=== PATIENT | male | born 1935 | race Caucasian/White ===

== ENCOUNTER → 2016-09-24 | Outpatient (CLI) | payer MEDICARE ==
[2016-09-24 16:29] LABS: CHCM 33.8; HCT 46.3 % (39.0-53.0); HDW 2.39; HGB 15.4 gm/dL (13.0-17.5); MCH 32.5 pg (25.0-35.0); MCHC 33.2 g/dL (31.0-37.0); Mean Platelet Volume 8.5; RBC 4.72 m/uL (4.30-5.90); RDW 12.5 % (11.5-15.5); WBC 7.4 k/uL (3.8-10.6)
[2016-09-24 16:47] LABS: Anion Gap 10 mmol/L; Blood Urea Nitrogen 12 mg/dL (9-20); Carbon Dioxide 27 mmol/L (22-30); Chloride 102 mmol/L (98-107); Non-African American GFR(MDRD) >60 (>60 ml/min/1.73 sqM); Potassium 4.5 mmol/L (3.5-5.1); Sodium 139 mmol/L (137-145)
== END | disposition home or self-care (01) ==
LOC: LABPAT 16:10
PROVIDERS: ATTEND Internal Medicine Cardiovascular Disease
DX: Z01.812 Encounter for preprocedural laboratory examination (principal); I49.5 Sick sinus syndrome
CPT/HCPCS: 80051; 82565; 84520; 85027

== ENCOUNTER 2016-09-27 05:48 | Day surgery (SDC) | payer MEDICARE ==
[2016-09-26 09:20] VITALS: BMI 28.5
[2016-09-27] MEDS ORDERED: CLINDAMYCIN 900 MG in DEXTROSE 5% IN WATER 50 ML IVPB ONE ×2 (05:56)
[2016-09-27] MEDS ORDERED: CLINDAMYCIN 600 MG in SODIUM CHLORIDE 0.9% IRRIGATIO 250 ML IRRIGATION ONE (05:56)
[2016-09-27] MEDS ORDERED: SODIUM CHLORIDE 0.9% 1,000 ML IV SCH (05:56)
[2016-09-27] MEDS ORDERED: fentaNYL (PF) 50 MCG/ML 2 ML AMP ONE (07:25)
[2016-09-27] MEDS ORDERED: MIDAZOLAM 2 MG/2 ML VIAL ONE (07:25)
[2016-09-27] MEDS ORDERED: fentaNYL (PF) 50 MCG/ML 2 ML AMP IV ONE (07:29)
[2016-09-27] MEDS ORDERED: MIDAZOLAM 2 MG/2 ML VIAL IV ONE (07:30)
[2016-09-27] MEDS ORDERED: LIDOCAINE 1% INJ 10MG/ML (20 ML MDV) SQ ONE (07:35)
[2016-09-27] MEDS ORDERED: HYDROcodone/APAP 5-325MG 1 EACH TAB PO PRN (08:28)
[2016-09-27] MEDS ORDERED: ACETAMINOPHEN TAB 325 MG TAB PO PRN (08:28)
--- NOTE | 2016-09-27 08:42 | P.PCN ---
Date of Procedure: 09/27/16 Preoperative Diagnosis: The fibrillation and sick sinus syndrome with near syncope Postoperative Diagnosis: The same Procedure(s) Performed: Axillary venography, dual-chamber permanent pacemaker implantation. Description of Procedure: HISTORY: This is a 80-year-old gentleman with history of access in atrial fibrillation and sick sinus syndrome with pauses up to 3 seconds and also symptoms of near syncope. Patient is advised to have permanent pacemaker implantation by Dr. Garcia. CONSENT:I have discussed the risks, benefits and alternative therapies for the above-mentioned procedure and for both sedation/analgesia as well as necessary blood product administration, if indicated, as they pertain to this patient. The patient has indicated understanding and acceptance of the risks and procedures discussed. CONSCIOUS SEDATION: Patient was given 1.5 milligrams of Versed and 50 g of fentanyl for sedation. The duration of sedation his 1 hour. PROCEDURE: Patient was brought to the lab in a fasting state. Patient was prepped and draped in the usual fashion. Patient was given IV sedation with fentanyl and Versed. The skin below the left clavicle was infiltrated with lidocaine. An incision was made parallel to deltopectoral groove was deepened until the pectoral fascia was exposed. A pocket was created by blunt dissection and cautery. Axillary venography was performed to delineate the course of the axillary vein. 2 sticks were performed into extrathoracic portion of the axillary vein and 2 sheaths were advanced over the guidewires and left in subclavian vein. LEADS: ATRIAL: This is manufactured by [employer]. Model number is 7741 and the serial number is [id number] VENTRICULAR: This is manufactured by [employer]. Model number is 7742 and the serial number is [id number]. THE DEVICE: This is manufactured by [employer]. Model number is L311 and serial number is [id number]. This is MRI capable device The ventricular lead is maneuvered l with help of a straight and curved stylets into the left ventricle apical region. Satisfactory position was obtained and threshold measurements were made. The atrial lead was then maneuvered into the right atrial appendage. And thresholds were obtained. THRESHOLDS: ATRIUM: The minimal patient threshold was 0.8 at pulse width of 0.5 ms with impedance of 541 ohms. P-wave: 5.6 mV VENTRICLE : The minimum patient threshold was 0.4 V at pulse width of 0.8 ms with impedance of 937 ohms. R-wave: 23 mV The leads and pulse generator remained in the pocket after it was washed with antibiotics. Pocket was closed in the usual fashion. The fascia was closed with 2-0 Prolene ,the subcutaneous tissue was closed with 3-0 Prolene and the skin was closed with 4-0 Prolene. PROGRAMMING: MODE: DDDR RATE: 60 to 1:30 OUTPUT: Atrium : 3.5 at 5 ms ventricle: 3.5 V at 0.5 ms FINAL IMPRESSION: #1 axillary venography #2 successful implantation of dual- chamber pacemaker COMPLICATIONS: None PLAN: Patient will be monitored on the telemetry unit. Prophylactic antibacterial be continued. Chest x-ray in the morning. If stable patient will be discharged home tomorrow. We'll resume anticoagulation from tomorrow evening.
[2016-09-27] MEDS ORDERED: ceFAZolin 2 GM in SODIUM CHLORIDE 0.9% 100 ML IVPB SCH (09:00)
[2016-09-27] MEDS: ATENOLOL 25 MG TAB PO SCH (11:12)
[2016-09-27] MEDS: LOSARTAN-HCTZ 50-12.5 MG 1 EACH TAB PO SCH (11:12)
[2016-09-27] MEDS: CLINDAMYCIN 600 MG in DEXTROSE 5% IN WATER 50 ML IVPB SCH ×6 (11:21→23:09)
[2016-09-27] MEDS ORDERED: ATORVASTATIN 10 MG TAB PO SCH (21:00)
[2016-09-27] MEDS ORDERED: MULTIVITAMINS, THERA 1 EACH TAB PO SCH (21:00)
[2016-09-27] MEDS ORDERED: CALCIUM CARBONATE 500 MG CHEWABLE PO SCH (21:00)
[2016-09-27] MEDS ORDERED: TAMSULOSIN 0.4 MG CAP.ER.24H PO SCH (21:00)
[2016-09-28] MEDS: CLINDAMYCIN 600 MG in DEXTROSE 5% IN WATER 50 ML IVPB SCH ×2 (05:58)
[2016-09-28 06:09] VITALS: RESP 16
--- NOTE | 2016-09-28 07:44 | XR ---
EXAMINATION TYPE: XR chest 2V DATE OF EXAM: 09/28/2016 6:23 AM COMPARISON: Prior chest x-ray 29 January 2012 HISTORY: Lead placement check TECHNIQUE: Frontal and lateral views of the chest are obtained. FINDINGS: Generator has been placed in the left pectoral region, there are leads in the right atrium and ventricle. No evident pneumothorax or pleural effusion. No other interval change. IMPRESSION: No evident complication status post pacemaker placement.
[2016-09-28 08:01] VITALS: BP 125/69; PULSE 76; TEMP 98.6
[2016-09-28] MEDS: LOSARTAN-HCTZ 50-12.5 MG 1 EACH TAB PO SCH (08:04)
[2016-09-28] MEDS: ATENOLOL 25 MG TAB PO SCH (08:05)
--- NOTE | 2016-09-28 09:16 | P.DS ---
Providers Attending physician: Sonya Pathak Primary care physician: Quinn Cerrato [facility] Course: Patient is doing well from a cardiac standpoint. No chest discomfort or shortness of breath. No swelling over the pacemaker site On examination his blood pressure is 125/69 mmHg heart rate 7 the 70s afebrile 98.6F Heart sounds are normal Breath sounds are normal no rhonchi no crackles Abdomen is soft nontender Extremities are warm no edema Impression Symptomatic bradycardia status post pacemaker implantation History of atrial flutter Plan Discharge home after completion of IV antibiotics, pacemaker interrogation Chest x-ray within normal limits Follow-up in the pacemaker clinic in 5 days All instructions given Follow-up with Dr. Dr. Garcia is scheduled Patient Condition at Discharge: Stable Plan - Discharge Summary Discharge Medication List Lovastatin [Mevacor] 20 mg PO HS 01/11/14 [History] Rivaroxaban [Xarelto] 20 mg PO DAILY 01/11/14 [History] Tamsulosin [Flomax] 0.4 mg PO HS 01/11/14 [History] Atenolol [Tenormin] 25 mg PO DAILY 09/26/16 [History] Calcium Carbonate [Calcium] 600 mg PO HS 09/26/16 [History] Losartan-Hctz 50-12.5 mg [Hyzaar 50-12.5] 1 each PO DAILY 09/26/16 [History] Multivitamins, Thera [Multivitamin (formulary)] 1 tab PO HS 09/26/16 [History] Follow up Appointment(s)/Referral(s): Bright Garcia MD [STAFF PHYSICIAN] - 4 Weeks
== END 2016-09-28 10:32 | disposition home or self-care (01) ==
LOC: CATHEP 05:48 → 3OBS 08:31 → CATHEP 09-28 10:32
PROVIDERS: ATTEND Internal Medicine Cardiovascular Disease
DX: I49.5 Sick sinus syndrome (principal); I48.3 Typical atrial flutter; I48.91 Unspecified atrial fibrillation; I10 Essential (primary) hypertension; E78.2 Mixed hyperlipidemia; Z79.01 Long term (current) use of anticoagulants; Z79.899 Other long term (current) drug therapy; Z88.0 Allergy status to penicillin; Z88.2 Allergy status to sulfonamides
CPT/HCPCS: 33208; 99152; 99153 ×2; 71020; C1898; C1785; J2250; J2001; J3010

== ENCOUNTER → 2021-04-17 | Outpatient (CLI) | payer MEDICARE ==
--- NOTE | 2021-04-17 18:17 | US ---
EXAMINATION TYPE: US venous doppler duplex LE DATE OF EXAM: 04/17/2021 5:50 PM COMPARISON: NONE CLINICAL HISTORY: R60.0 edema. Edema. No hx of DVT. Patient on Xarelto. SIDE PERFORMED: Bilateral TECHNIQUE: The lower extremity deep venous system is examined utilizing real time linear array sonog naeem with graded compression, doppler sonography and color-flow sonography. VESSELS IMAGED: Common Femoral Vein Deep Femoral Vein Greater Saphenous Vein * Femoral Vein Popliteal Vein Small Saphenous Vein * Proximal Calf Veins (* superficial vessels) Right Leg: No evidence of DVT in veins imaged at this time. Left Leg: No evidence of DVT in veins imaged at this time. *At patient's area of pain, left medial c chcf, there appears to be an elongated complex area measuring 1.1 cm AP and 1.5 cm in width. Difficult to image length as the area extends down the calf. IMPRESSION: 1. Right lower extremity negative for deep venous thrombosis. 2. Left lower extremity negative for deep venous thrombosis. 3. Hypoechoic collection within the medial left calf. Correlate for hematoma.
== END | disposition home or self-care (01) ==
LOC: RADUSWWP 17:07
PROVIDERS: ATTEND Family Medicine
DX: R60.0 Localized edema (principal)
CPT/HCPCS: 93970

== ENCOUNTER 2023-11-05 08:56 | Day surgery (SDC) | payer MEDICARE ==
[~2023-11-05 08:56] MED LIST: SODIUM CHLORIDE 0.9% 1,000 ML IV SCH
[2023-11-05] MEDS: IV FLUID CONTINUATION 1,000 ML IV ONE (09:14)
[2023-11-05] MEDS: SODIUM CHLORIDE 0.9% 1,000 ML IV SCH (09:14)
[2023-11-05 09:29] LABS: Basophils % (A) 0 %; Eosinophils # (A) 0.1 k/uL (0-0.7); Eosinophils % (A) 1 %; HCT 51.1 % (39.0-53.0); HGB 16.6 gm/dL (13.0-17.5); Lymphocytes # (A) 1.3 k/uL (1.0-4.8); Lymphocytes % (A) 16 %; MCH 32.6 pg (25.0-35.0); MCHC 32.5 g/dL (31.0-37.0); MCV 100.4 fL (80.0-100.0); Mean Platelet Volume 10.7; Monocytes # (A) 0.7 k/uL (0-1.0); Monocytes % (A) 9 %; Neutrophils # (A) 5.9 k/uL (1.3-7.7); Neutrophils % (A) 72 %; Platelet Count 156 k/uL (150-450); RBC 5.09 m/uL (4.30-5.90); RDW 12.8 % (11.5-15.5); WBC 8.2 k/uL (3.8-10.6)
[2023-11-05 09:43] VITALS: RESP 16; TEMP 97.7
[2023-11-05 09:51] LABS: African American GFR (CKD) 79 (>60 ml/min/1.73 sqM); Anion Gap 7 mmol/L; Blood Urea Nitrogen 29 mg/dL (9-20); Calcium 9.3 mg/dL (8.4-10.2); Carbon Dioxide 24 mmol/L (22-30); Chloride 108 mmol/L (98-107); Glucose 120 mg/dL (74-99); Non-African American GFR(CKD) 68 (>60 ml/min/1.73 sqM); Potassium 4.5 mmol/L (3.5-5.1); Sodium 139 mmol/L (137-145)
[2023-11-05] MEDS: MIDAZOLAM 2 MG/2 ML VIAL IVP ONE (10:41)
[2023-11-05] MEDS: fentaNYL (PF) 50 MCG/ML 2 ML AMP IVP ONE (10:41)
[2023-11-05] MEDS: LIDOCAINE 1% INJ 10MG/ML (20 ML MDV) SQ ONE ×2 (10:43→10:48)
[2023-11-05] MEDS: ceFAZolin 1 GM in SODIUM CHLORIDE 0.9% IRRIG BTL 250 ML IRRIGATION PRN (10:47)
[2023-11-05 13:34] VITALS: PULSE 68
--- NOTE | 2023-11-05 15:08 | P.PCN ---
Description of Procedure: CARDIOLOGY PROCEDURE NOTE Geophysics Professor: Dr. Christian Lanier Procedure performed: Dual chamber permanent pacemaker generator change Site: Left subclavian Indications: Sick Sinus Syndrome, JAG Complications: None Blood Loss: Minimal Description of Procedure: After the risks, benefits, and alternatives of the above-mentioned procedure was explained in detail with the patient, informed consent was obtained. The patient was taken to the cardiac catheterization suite where the left subclavian area was sterily prepped and draped in the usual fashion. Patient was given IV Versed and fentanyl for sedation. The skin over the existing pulse generator was infiltrated with lidocaine. An incision was made in the skin and was deepened until the pectoral fascia was exposed. Hemostasis was obtained. The existing pulse generator was pulled out of the pocket. The leads were disconnected and were checked for thresholds. The existing leads were then inserted into the appropriate position into the new generator. They were then secured with the setscrew provided. The leads and generator were inserted into the pocket with the leads posterior. The subcutaneous tissue was approximated utilizing #2.0 and 3.0 vicryl in an interrupted stitch fashion. The dermal layer was approximated utilizing #4.0 vicryl. The area was cleansed with sterile saline and dried. A sterile 4x4 dressing was applied and the patient was transferred to the post catheterization holding area in stable and satisfactory condition. The patient tolerated the procedure well. 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[employer]: [employer] Brand: [id number] Magnolia XT DR MRI Model #: [id number] Serial#: [id number] Right Atrial Bipolar Lead Data: Type: Active fixation lead Recorder Helper [employer]ing: [employer] Model#: 7741 Serial Number: [id number] Right Ventricular Bipolar Lead Data: Type: Active fixation lead Recorder Helper [employer]ing: [employer] Model #: 7742 Serial #: [id number] Stimulation Thresholds: Right atrial bipolar lead pacing and sensing thresholds Voltage: Afib Impedance: 551 ohms P-wave sensin.5 mV Right Ventricular bipolar lead pacing and sensing thresholds Pulse Width: 0.4ms Voltage: 1.25 volts Impedance: 513 ohms R-wave sensin.1 mV Parameter Setting: Pacing mode is AAIR<=>DDDR Lower rate 60 bpm Upper rate 120 bpm Impressions: 1. Successful generator change of a dual chamber permanent pacemaker in the left pectoral site. Plan: 1. Routine post procedure care will be instituted as well as outpatient follow- up surveillance.
[2023-11-05 15:33] VITALS: BP 132/65
== END 2023-11-05 15:11 | disposition home or self-care (01) ==
LOC: CATHEP 08:56
PROVIDERS: ATTEND Internal Medicine
DX: I49.5 Sick sinus syndrome (principal); I48.0 Paroxysmal atrial fibrillation; I10 Essential (primary) hypertension; E78.5 Hyperlipidemia, unspecified; Z79.01 Long term (current) use of anticoagulants; Z79.899 Other long term (current) drug therapy; Z88.0 Allergy status to penicillin; Z88.2 Allergy status to sulfonamides
CPT/HCPCS: 33228; 80048; 85025; C1785; J2250; J0690; J2001; J3010